=== PATIENT | female | born 1980 | race Caucasian/White ===

== ENCOUNTER 2022-06-07 10:44 | Day surgery (SDC) | payer BC ==
[2022-06-02 15:11] LABS: BASOPHILS # (AUTO) 0.1 X10'3 (0-0.2); BASOPHILS % (AUTO) 0.6 % (0-1); EOSINOPHILS # (AUTO) 0.2 X10'3 (0-0.9); EOSINOPHILS % (AUTO) 1.6 % (0-6); LYMPHOCYTES % (AUTO) 38.2 % (21-51); MEAN CORPUSCULAR HEMOGLOBIN 29.5 PG (27.0-31.0); MEAN CORPUSCULAR HGB CONC 33.3 g/dL (33.0-36.5); MEAN CORPUSCULAR VOLUME 88.5 FL (78-98); MEAN PLATELET VOLUME 8.4 FL (7.4-10.4); MONOCYTES # (AUTO) 0.6 X10'3 (0-0.9); MONOCYTES % (AUTO) 6.1 % (2-12); NEUTROPHILS # (AUTO) 5.5 X10'3 (1.8-7.7); NEUTROPHILS % (AUTO) 53.5 % (42-75); PRE OP HEMATOCRIT 38.6 % (35.0-45.0); PRE OP HEMOGLOBIN 12.9 g/dL (12.0-16.0); PRE OP PLATELET COUNT 340 X10'3 (140-440); RED BLOOD COUNT 4.36 X10'6 (4.20-5.60); RED CELL DISTRIBUTION WIDTH 13.8 % (11.5-14.5)
[2022-06-02 15:27] LABS: ALBUMIN 3.7 G/DL (3.4-5.0); ALBUMIN/GLOBULIN RATIO 1.1 (1.1-1.5); ALKALINE PHOSPHATASE 103 IU/L (46-116); BLOOD UREA NITROGEN 13 MG/DL (7-18); BUN/CREATININE RATIO 21.3 (6.6-38.0); CALCIUM 9.4 MG/DL (8.5-10.1); CHLORIDE 104 MMOL/L (99-107); CREATININE 0.61 MG/DL (0.40-0.90); PRE OP ALT 20 U/L (30-65); PRE OP ANION GAP 10 (8-16); PRE OP AST 14 U/L (10-37); PRE OP BILIRUB, TOTAL 0.2 MG/DL (0.0-1.0); PRE OP GLUCOSE 131 MG/DL (70-104); PRE OP POTASSIUM 3.8 MMOL/L (3.4-5.1); PRE OP SODIUM 139 MMOL/L (135-145); TOTAL CARBON DIOXIDE 25.3 MMOL/L (24-32); eGFR > 90 ML/MIN
[2022-06-02 15:28] LABS: HCG SERUM QL NEGATIVE
[~2022-06-07] VITALS: Ht 165.1 cm; Wt 126.3 kg
[2022-06-07] VITALS (9 sets, daily range): BP systolic 119–141; BP diastolic 72–83
[~2022-06-07 10:44] MED LIST: ALBU17AE26 INH; BUPIVAcaine 0.25% w/Epi /PF 30ml vial ONE; CALC-1215 PO; CETI-90 PO; CHOL400T57 PO; CYAN50009 PO; FERR236T3 PO; LACT1CAP65 PO; LUTE1CAP PO; METF-900 PO; MULT-1085 PO; MULT-1130 PO; OMEP40CA21 PO; SEMA0.25 SUBCUT; [UNRECOGNIZED DRUG - OTHER] VG; ceFOXitin 2GM-NS 100mL ADDvant 100 ML IV ONE; famotidine 20mg tablet PO ONE; ringers solution, lacted 1,000 ML IV SCH
[2022-06-07] MEDS ORDERED: fentaNYL/PF 50MCG/1 ML 2ML syringe ONE (11:23)
[2022-06-07] MEDS ORDERED: midazolam 1 mg/ML 2ml injection ONE (11:24)
[2022-06-07] MEDS ORDERED: propofol inj 20 ML IV ONE (11:45)
[2022-06-07] MEDS ORDERED: LIDOcaine 2% (20mg/ml) 5ml vial ONE (11:45)
[2022-06-07] MEDS ORDERED: rocuronium 10mg/ml inj IV ONE ×2 (11:45→13:00)
[2022-06-07] MEDS ORDERED: sevoflurane 250ml liquid IH ONE (11:51)
[2022-06-07] MEDS ORDERED: ondansetron/PF 4mg/2ml inj ONE (12:32)
[2022-06-07] MEDS ORDERED: dexamethasone sod phosphate 4mg/ml inj. ONE (12:32)
[2022-06-07] MEDS ORDERED: BUPIVAcaine 0.25% w/Epi /PF 30ml vial IJ ONE (12:38)
[2022-06-07] MEDS ORDERED: sugammadex 200mg/2ml injection IV ONE ×2 (12:43)
[2022-06-07] MEDS ORDERED: ketorolac trometh. 30mg/ml inj. ONE (12:58)
--- NOTE | 2022-06-07 13:13 | NUR ---
Received from OR via [facility], accompanied by Anesthesiologist and report given by NATY Anesthesiologist. PATIENT WAKING UP, NO S/S OF PAIN, V/S WNL, PIV 20G TO LEFT HAND, PERIPAD W/ SCANT DRAINAGE. Addendum: 06/07/22 at 1335 by Delmer Leiva RN Amended: Links added.
[2022-06-07] MEDS ORDERED: albuterol 60 PUFF/8GM Inhaler IH ONE (13:23)
[2022-06-07] MEDS ORDERED: morphine 4 MG/ML inj SYRINge IV PRN (13:35)
[2022-06-07] MEDS ORDERED: morphine 2 MG/ML inj. syringe IV PRN (13:35)
[2022-06-07] MEDS ORDERED: proCHLORperazine 10 MG/2 ml inj IV PRN (13:35)
[2022-06-07] MEDS ORDERED: ringers solution, lacted 1,000 ML IV SCH (13:35)
[2022-06-07] MEDS ORDERED: meperidine/PF 25mg/ml syringe IV PRN ×3 (13:35)
[2022-06-07] MEDS ORDERED: ondansetron/PF 4mg/2ml inj IV PRN (13:35)
--- NOTE | 2022-06-07 14:23 | NUR ---
ALL DISCHARGE CRITERIA HAS BEEN MET. VSS, PAIN AT A TOLERABLE LEVEL, ABLE TO SAFELY AMBULATE AND TRANSFER SELF. IV TAKEN OUT WITHOUT ANY COMPLICATIONS. ALL DISCHARGE INSTRUCTIONS COVERED WITH PATIENT AND ALL QUESTIONS ANSWERED. PATIENT TAKEN OUT VIA WHEELCHAIR WITH ALL BELONGINGS TO PERSONAL VEHICLE WHERE FAMILY DROVE PATIENT HOME. Addendum: 06/07/22 at 1447 by Delmer Leiva RN Amended: Links added.
== END 2022-06-07 14:23 | disposition home or self-care (01) ==
LOC: PRE-OP 10:44
PROVIDERS: ATTEND Specialist
DX: Z30.2 Encounter for sterilization (principal); Z30.432 Encounter for removal of intrauterine contraceptive device; N90.7 Vulvar cyst; J45.909 Unspecified asthma, uncomplicated; E11.9 Type 2 diabetes mellitus without complications; G43.909 Migraine, unspecified, not intractable, without status migrainosus; F32.9 Major depressive disorder, single episode, unspecified; E66.9 Obesity, unspecified; Z68.42 Body mass index [BMI] 45.0-49.9, adult; Z79.84 Long term (current) use of oral hypoglycemic drugs; Z79.899 Other long term (current) drug therapy; Z98.84 Bariatric surgery status; Z98.890 Other specified postprocedural states; Z83.3 Family history of diabetes mellitus
CPT/HCPCS: 36415; 57135; 58301; 58670; 80053; 82948; 84703; 85025; J0694; J1100; J1885; J2175; J2250; J2405; J2704; J3010; J3490; J7030; J7120; S0020; Z7506; Z7508; Z7512; A4618; A7000

== ENCOUNTER 2024-03-29 18:01 | Emergency (ER) | payer BC ==
[~2024-03-29] VITALS: Ht 165.1 cm; Wt 129.6 kg
[~2024-03-29 18:01] MED LIST changes: -BUPIVAcaine 0.25% w/Epi /PF 30ml vial ONE; -ceFOXitin 2GM-NS 100mL ADDvant 100 ML IV ONE; -famotidine 20mg tablet PO ONE; -ringers solution, lacted 1,000 ML IV SCH
[2024-03-29 18:31] VITALS: BP 155/94; PULSE 86; RESP 16; O2SAT 98
[2024-03-29] MEDS ORDERED: POLOS EACHEYE (18:47)
[2024-03-29 18:55] VITALS: TEMP 98.4
== END 2024-03-29 19:00 | disposition home or self-care (01) ==
LOC: ER 18:02
DX: H10.89 Other conjunctivitis (principal); Z79.84 Long term (current) use of oral hypoglycemic drugs; Z79.899 Other long term (current) drug therapy
CPT/HCPCS: 99283